=== PATIENT | male | born 1950 | race Caucasian/White ===

== ENCOUNTER 2017-09-01 16:10 | Emergency (ER) | payer MEDICARE, BC ==
[2017-09-01] MEDS: Aspirin 81 MG Tab.Chew PO ONE (16:35)
--- NOTE | 2017-09-01 16:43 | EDM.PDOC ---
ED HPI GENERAL MEDICAL PROBLEM - General Chief Complaint: Chest Pain Time Seen by Provider: 09/01/17 16:30 Source of Information: Reports: Patient History Limitations: Reports: No Limitations - History of Present Illness INITIAL COMMENTS - FREE TEXT/NARRATIVE: Patient presents with recent pain in left upper chest. He tells me that around 0930 or 1000 this morning (7 hours ago) he had a sharp, stabbing pain in left upper chest. This lasted 2-3 minutes and started about 30 minutes after he had finished shovelling snow. He had been shovelling snow for about 15 minutes and denies any chest pressure, tightness or heaviness while he was shovelling or afterward. He had the exact same thing yesterday about 30 minutes after half hour of shovelling. He says both days he only had the one episode of pain and it hasn't returned in last 7 hours today. Pt tells me that he hasn't seen his doctor for any regular checkups for several years. He used to take Lisinopril for blood pressure but doesn't take any Rx medications currently. - Related Data Allergies Allergy/AdvReac Type Severity Reaction Status Date / Time No Known Allergies Allergy Verified 09/01/17 16:33 Home Meds: Home Meds Garlic 1 tab PO DAILY 09/01/17 [History] Ubidecarenone [Co Q-10] 50 mg PO DAILY 09/01/17 [History] Vit A/C/E AC/Znox/Cupric Oxide [Eye Vitamin-Minerals Tablet] 1 tab PO DAILY [History] ED ROS GENERAL - Review of Systems Review Of Systems: See Below Constitutional: Denies: Fever, Chills, Malaise, Weakness, Diaphoresis, Decreased Appetite HEENT: Denies: Vision Change Respiratory: Denies: Shortness of Breath, Cough Cardiovascular: Denies: Edema, Syncope GI/Abdominal: Denies: Abdominal Pain, Diarrhea, Vomiting : Reports: No Symptoms Musculoskeletal: Reports: Shoulder Pain. Denies: Neck Pain, Arm Pain, Back Pain Skin: Denies: Cyanosis, Jaundice, Mottled, Pallor, Diaphoresis Neurological: Denies: Confusion, Dizziness, Headache, Seizure, Syncope, Trouble Speaking, Difficulty Walking Psychiatric: Denies: Agitation, Anxiety, Confusion ED EXAM, GENERAL - Physical Exam Exam: See Below Exam Limited By: No Limitations General Appearance: Alert, WD/WN, No Apparent Distress, Other (Well-appearing male in no distress) Eye Exam: Bilateral Eye: EOMI, Normal Inspection, PERRL Ears: Normal External Exam, Hearing Grossly Normal Nose: Normal Inspection, No Blood Throat/Mouth: Normal Inspection, Normal Lips, Normal Voice, No Airway Compromise Head: Atraumatic, Normocephalic Neck: Normal Inspection, Supple, Non-Tender, Full Range of Motion. No: Carotid Bruit Respiratory/Chest: No Respiratory Distress, Lungs Clear, Normal Breath Sounds, No Accessory Muscle Use, Other (Palpation of chest reveals tenderness of upper, lateral pectoral muscle that is the exact same pain patient had earlier today and yesterday that he was concerned about.). No: Stridor Cardiovascular: Normal Peripheral Pulses, Regular Rate, Rhythm, No Murmur Peripheral Pulses: 2+: Carotid (L), Carotid (R), Radial (L), Radial (R), Posterior Tibial (L), Posterior Tibial (R) GI/Abdominal: Normal Bowel Sounds, Soft, Non-Tender, No Organomegaly, No Distention, No Abnormal Bruit, No Mass Extremities: Normal Inspection, Normal Range of Motion, Non-Tender, No Pedal Edema Neurological: Alert, Oriented, Normal Cognition, No Motor/Sensory Deficits Psychiatric: Normal Affect, Normal Mood Skin Exam: Warm, Dry, Intact, Normal Color, No Rash Course - Vital Signs Last Recorded V/S: Last Vital Signs Temp 98.9 F 09/01/17 16:39 Pulse 91 09/01/17 17:12 Resp 18 09/01/17 17:12 BP 151/93 H 09/01/17 17:12 Pulse Ox 95 09/01/17 17:12 - Orders/Labs/Meds Orders: Active Orders 24 hr Category Date Time Status EKG Documentation Completion [RC] ASDIRECTED Care 09/01/17 16:32 Active Chest 2V [CR] Routine Exams 09/01/17 Ordered EKG 12 Lead [EK] Routine Ther 09/01/17 16:31 Ordered Labs: Laboratory Tests 09/01/17 09/01/17 Range/Units 16:20 16:20 WBC 7.1 (5.0-10.0) 10^3/uL RBC 4.65 (4.50-6.00) 10^6/uL Hgb 15.4 (13.0-17.0) g/dL Hct 45.7 (40.0-52.0) % MCV 98.3 H (82.0-92.0) fL MCH 33.1 H (27.0-31.0) pg MCHC 33.7 (32.0-36.0) g/dL RDW 13.4 (11.5-14.5) % Plt Count 217 (150-300) 10^3/uL MPV 8.3 (7.4-10.4) fL Neut % (Auto) 67.7 (50.0-70.0) % Lymph % (Auto) 21.9 (20.0-40.0) % [place] % (Auto) 9.0 H (2.0-8.0) % Eos % (Auto) 1.0 (1.0-3.0) % Baso % (Auto) 0.4 (0.0-1.0) % Neut # (Auto) 4.8 (2.5-7.0) 10^3/uL Lymph # (Auto) 1.6 (1.0-4.0) 10^3/uL [place] # (Auto) 0.6 (0.1-0.8) 10^3/uL Eos # (Auto) 0.1 (0.1-0.3) 10^3/uL Baso # (Auto) 0.0 (0.0-0.1) 10^3/uL Sodium 137 (136-145) mmol/L Potassium 3.9 (3.3-5.3) mmol/L Chloride 101 (98-115) mmol/L Carbon Dioxide 22.4 (21.0-32.0) mmol/L BUN 19 (6-25) mg/dL Creatinine 1.03 (0.51-1.17) mg/dL Est Cr Clr Drug Dosing 65.96 mL/min Estimated GFR (MDRD) > 60 mL/min Glucose 126 H (70-110) mg/dL Calcium 9.0 (8.7-10.3) mg/dL Troponin I < 0.04 (0.00-0.070) ng/mL Meds: Medications Discontinued Medications Generic Name Dose Route Start Last Admin Trade Name Freq PRN Reason Stop Dose Admin Aspirin 324 mg 09/01/17 16:31 09/01/17 16:35 Aspirin PO 09/01/17 16:32 324 mg ONETIME ONE Administration - Re-Assessments/Exams Free Text/Narrative Re-Assessment/Exam: 09/01/17 17:25 CXR normal. Trop is normal. Discussed findings and treatment plan with patient and he is discharged to home in stable condition. Departure - Departure Time of Disposition: 17:21 Disposition: Home, Self-Care 01 Condition: Good Clinical Impression: Chest wall muscle strain Qualifiers: Encounter type: initial encounter Qualified Code(s): S29.011A - Strain of muscle and tendon of front wall of thorax, initial encounter Instructions: Muscle Strain, [id number] Referrals: PCP,None [Primary Care Provider] - Forms: ED Department Discharge Additional Instructions: 1. As we discussed, check your blood pressure at home several times and record the results to take with you to your doctor visit next week. 2. Call tomorrow to make an appointment with your PCP next week for evaluation of your blood pressure and discuss if you need to have a stress test. 3. Recheck with your PCP sooner if any problems or go to ER. - My Orders Last 24 Hours: My Active Orders 09/01/17 Chest 2V [CR] Routine 09/01/17 16:31 EKG 12 Lead [EK] Routine 09/01/17 16:32 EKG Documentation Completion [RC] ASDIRECTED - Assessment/Plan Last 24 Hours: My Active Orders 09/01/17 Chest 2V [CR] Routine 09/01/17 16:31 EKG 12 Lead [EK] Routine 09/01/17 16:32 EKG Documentation Completion [RC] ASDIRECTED
[2017-09-01 16:59] LABS: CHLORIDE,CL 101 mmol/L (98-115); SODIUM,NA 137 mmol/L (136-145)
== END 2017-09-01 17:30 | disposition home or self-care (01) ==
LOC: KA.ED 16:10
DX: S29.011A Strain of muscle and tendon of front wall of thorax, initial encounter (principal); Z79.899 Other long term (current) drug therapy; X58.XXXA Exposure to other specified factors, initial encounter
CPT/HCPCS: 71046; 80048; 84484; 85025; 93005; 99284; 99285; A9270-GY